=== PATIENT | female | born 1985 | race Caucasian/White ===

== ENCOUNTER 2021-03-04 07:51 | Day surgery (SDC) | payer BC, MEDICAID ==
[2021-02-25 15:31] LABS: BASOPHILS % (AUTO) 0.4 % (0-1); EOSINOPHILS # (AUTO) 0.1 X10'3 (0-0.9); EOSINOPHILS % (AUTO) 1.4 % (0-6); LYMPHOCYTES # (AUTO) 1.9 X10'3 (1.1-4.8); LYMPHOCYTES % (AUTO) 25.9 % (21-51); MEAN CORPUSCULAR HEMOGLOBIN 29.7 PG (27.0-31.0); MEAN CORPUSCULAR HGB CONC 33.9 g/dL (33.0-36.5); MEAN CORPUSCULAR VOLUME 87.6 FL (78-98); MEAN PLATELET VOLUME 8.1 FL (7.4-10.4); MONOCYTES # (AUTO) 0.5 X10'3 (0-0.9); MONOCYTES % (AUTO) 7.6 % (2-12); NEUTROPHILS # (AUTO) 4.7 X10'3 (1.8-7.7); NEUTROPHILS % (AUTO) 64.7 % (42-75); PRE OP HEMATOCRIT 43.2 % (35.0-45.0); PRE OP HEMOGLOBIN 14.6 g/dL (12.0-16.0); PRE OP PLATELET COUNT 225 X10'3 (140-440); RED BLOOD COUNT 4.93 X10'6 (4.20-5.60); RED CELL DISTRIBUTION WIDTH 13.5 % (11.5-14.5)
[2021-02-25 15:44] LABS: PRE OP PROTIME 10.3 SECONDS (9.0-12.0)
[2021-02-25 15:48] LABS: ALBUMIN/GLOBULIN RATIO 1.2 (1.1-1.5); ALKALINE PHOSPHATASE 80 IU/L (46-116); BLOOD UREA NITROGEN 15 MG/DL (7-18); BUN/CREATININE RATIO 18.8 (6.6-38.0); CALCIUM 8.7 MG/DL (8.5-10.1); CHLORIDE 105 MMOL/L (99-107); PRE OP ALT 28 U/L (30-65); PRE OP ANION GAP 8 (8-16); PRE OP AST 12 U/L (10-37); PRE OP BILIRUB, TOTAL 0.3 MG/DL (0.0-1.0); PRE OP GLUCOSE 97 MG/DL (70-104); PRE OP POTASSIUM 3.9 MMOL/L (3.4-5.1); PRE OP SODIUM 141 MMOL/L (135-145); TOTAL CARBON DIOXIDE 27.8 MMOL/L (24-32); TOTAL PROTEIN 7.4 G/DL (6.4-8.2); eGFR 82 ML/MIN
[2021-02-25 16:24] LABS: HCG SERUM QL NEGATIVE
[~2021-03-04] VITALS: Ht 160 cm; Wt 89.9 kg
[2021-03-04] VITALS (8 sets, daily range): BP systolic 113–133; BP diastolic 67–93
[~2021-03-04 07:51] MED LIST: BCP PO; LIDOcaine 1% W/epiNEPHrine 1:100,000 20ml vial ONE; ceFAZolin 1000mg inj ONE; cocaine 4% topical solution 4ml bottle ONE; diazepam 5mg tablet PO PRN; famotidine 20mg tablet PO ONE; mupirocin 2% ointment 22GM ONE; oxymetazoline 15 ML nasal spray NS ONE; oxymetazoline 15 ML nasal spray NS PRN; ringers solution, lacted 1,000 ML IV SCH
[2021-03-04] MEDS ORDERED: labetalol 20mg/4ml (5mg/ml) syringe IV PRN (08:55)
[2021-03-04] MEDS ORDERED: ringers solution, lacted 1,000 ML IV SCH (08:55)
[2021-03-04] MEDS ORDERED: morphine 2 MG/ML inj. syringe IV PRN (08:55)
[2021-03-04] MEDS ORDERED: fentaNYL/PF 50MCG/1 ML 2ML syringe IV PRN ×2 (08:55)
[2021-03-04] MEDS ORDERED: ondansetron/PF 4mg/2ml inj IV PRN (08:55)
[2021-03-04] MEDS ORDERED: hydrALAZINE 20mg/ml inj. IV PRN (08:55)
[2021-03-04] MEDS ORDERED: morphine 4 MG/ML inj SYRINge IV PRN (08:55)
[2021-03-04] MEDS ORDERED: LIDOcaine 1% (10mg/ml) 2ml vial ONE (08:58)
[2021-03-04] MEDS ORDERED: dexamethasone sod phosphate 10mg/ml inj ONE (09:50)
[2021-03-04] MEDS ORDERED: dexmedetomidine 200mcg/2ml inj. IV ONE (09:50)
[2021-03-04] MEDS ORDERED: sevoflurane 250ml liquid IH ONE (09:50)
[2021-03-04] MEDS ORDERED: midazolam 1 mg/ML 2ml injection ONE (09:53)
[2021-03-04] MEDS ORDERED: fentaNYL/PF 50MCG/1 ML 2ML syringe ONE (09:53)
[2021-03-04] MEDS ORDERED: propofol inj 20 ML IV ONE (10:03)
[2021-03-04] MEDS ORDERED: ondansetron/PF 4mg/2ml inj ONE (10:03)
[2021-03-04] MEDS ORDERED: LIDOcaine 2% (20mg/ml) 5ml vial ONE (10:03)
[2021-03-04] MEDS ORDERED: ceFAZolin 1000mg inj ONE (10:03)
--- NOTE | 2021-03-04 11:05 | NUR ---
ADMITTED TO PACU FROM OR ACCOMPANIED BY ANESTHESIA. INTIAL PHYSICAL ASSESSMENT DONE AND RECORDED. REPORT RECEIVED FROM ANESTHESIA.
[2021-03-04] MEDS ORDERED: salt irrigation nasal spray 45 ML SPRAY NS PRN (11:10)
[2021-03-04] MEDS ORDERED: HYDROcodone/acetaminophen 10/325mg tab PO ONE (11:35)
--- NOTE | 2021-03-04 12:15 | NUR ---
DISCHARGE CRITERIA MET, DISCHARGE INSTRUCTIONS GIVEN, DEMONSTRATES VERBAL UNDERSTANDING. DISCHARGED HOME IN GOOD CONDITION.
== END 2021-03-04 12:15 | disposition home or self-care (01) ==
LOC: PAS 07:51
PROVIDERS: ATTEND Otolaryngology
DX: J32.8 Other chronic sinusitis (principal); J34.3 Hypertrophy of nasal turbinates; J34.89 Other specified disorders of nose and nasal sinuses; J45.909 Unspecified asthma, uncomplicated; E66.9 Obesity, unspecified; Z68.35 Body mass index [BMI] 35.0-35.9, adult; Z20.822 Contact with and (suspected) exposure to COVID-19; Z79.01 Long term (current) use of anticoagulants; Z79.899 Other long term (current) drug therapy; Z72.89 Other problems related to lifestyle; Z88.8 Allergy status to other drugs, medicaments and biological substances; Z88.2 Allergy status to sulfonamides; Z98.890 Other specified postprocedural states; Z86.16 Personal history of COVID-19
CPT/HCPCS: 30140; 31240; 31254; 31267; 36415; 61782; 76380; 80053; 82948; 84703; 85025; 85576; 85610; 85730; A6402; C9250; J0690; J1100; J2001; J2250; J2405; J2704; J3010; J7040; J7120; U0003; U0005; Z7506; Z7508; Z7512; A4618; A7000